=== PATIENT | male | born 1990 | race Caucasian/White ===

== ENCOUNTER 2020-10-04 12:40 | Emergency (ER) | payer BC, SELFPAY ==
--- NOTE | ~2020-10-04 | XR_ITS ---
EXAMINATION: XR foot LT min 3V DATE: 10/04/2020 13:11 INDICATION: Hyperextension injury. Lateral tarsal pain. TECHNIQUE: 4 views of left foot were obtained. COMPARISON: None. FINDINGS: Bone alignment is normal. No fracture. Joint spaces are well maintained. IMPRESSION: 1. No fracture. Reviewed, dictated and finalized at location B. LIFT DRIVER IMPRESSION: 1. No fracture.
--- NOTE | ~2020-10-04 | XR_ITS ---
EXAMINATION: XR ankle LT min 3V DATE: 10/04/2020 13:11 INDICATION: Left ankle hyperextension injury. Lateral tarsal pain. TECHNIQUE: 4 views of left ankle were obtained. COMPARISON: None. FINDINGS: Bone alignment is normal. No fracture. Joint spaces are well maintained. There is ankle sof t tissue swelling. IMPRESSION: 1. No fracture. Reviewed, dictated and finalized at location B. IOVASCULAR OR NURSE IMPRESSION: 1. No fracture.
[2020-10-04 12:52] VITALS: BP 127/77; PULSE 75; RESP 20; TEMP 37.9; O2SAT 100
--- NOTE | 2020-10-04 12:55 | ED.LOWEXIN ---
HPI - Extremity Injury (Lower) General Chief Complaint: Extremity Injury, Lower Stated Complaint: Extremity Injury, Lower Time Seen by Provider: 10/04/20 12:56 Source: patient and RN notes reviewed History of Present Illness HPI Narrative: Patient is a 30-year-old male who presents the urgent care with complaints of left ankle and foot injury. Patient states that he stepped off of some min into the mud yesterday and twisted his left ankle. Patient states that the swelling has not subsided since yesterday morning at approximately 11 AM. Patient states that he is elevated used ice and taken ibuprofen. Patient denies of any old injury to the left foot or ankle. States that pain is increased with weightbearing or ambulation. Patient did have a boot on at the time of the incident. Denies any other acute complaints or injuries. No acute distress noted. Patient aware of the plan of care. Some parts of this dictation were generated by voice recognition software and may contain typographical and/or grammatical inaccuracies. Related Data Home Medications Medication Instructions Recorded Confirmed No Home Medications 10/04/20 10/04/20 Allergies Allergy/AdvReac Type Severity Reaction Status Date / Time No Known Allergies Allergy Verified 10/04/20 13:06 Review of Systems Review of Systems: Narrative: CONSTITUTIONAL: Denies fever, chills, or sweats. EYES: Denies visual changes, redness, or discharge. ENT: Denies rhinorrhea, congestion, sore throat, or otalgia. CARDIOVASCULAR: Denies chest pain, palpitations, or edema. RESPIRATORY: Denies cough or dyspnea. GASTROINTESTINAL: Denies abdominal pain, nausea, vomiting, or diarrhea. GENITOURINARY: Denies dysuria or hematuria. SKIN: Denies rash or itching. MUSCULOSKELETAL: Reports of left foot and ankle pain and swelling NEUROLOGIC: Denies headache, numbness, or weakness. All other systems reviewed are negative, except as documented in HPI. PMFSH Comments At the time of my signature, I reviewed and agree with the nursing past medical, surgical, social, and family history. There is no relevant family history pertinent to the patient complaint. Exam Narrative: Exam Narrative: GENERAL: This is a well-nourished, well-developed patient, in no apparent distress. HEAD: normocephalic, atraumatic. EYES: PERRL. Sclera clear/white. Vision is grossly intact. EARS: External ears normal NOSE: External nose normal with no obvious nasal discharge, nares without redness, no rhinorrhea. THROAT: Mucous membranes moist NECK: Neck supple SKIN: warm, intact with no suspicious lesions or rash, good texture and turgor. NEURO: awake, alert, and oriented to person, place and time. There were no obvious focal neurologic abnormalities. EXTREMITIES: Mild to moderate edema and erythema noted to the lateral aspect of the left malleolus and left foot. Mild tenderness to the left lateral malleolus and left foot. Positive strong left pedal pulse with capillary refill less than 2 seconds. Range of motion within normal limits with mild pain. Increased pain with weightbearing. Course Vital Signs Vital signs: Vital Signs Temperature 100.2 F H 10/04/20 12:52 Pulse Rate 75 10/04/20 12:52 Respiratory Rate 20 10/04/20 12:52 Blood Pressure 127/77 10/04/20 12:52 Pulse Oximetry 100 10/04/20 12:52 Temperature 100.2 F H 10/04/20 12:52 Pulse Rate 75 10/04/20 12:52 Respiratory Rate 20 10/04/20 12:52 Blood Pressure 127/77 10/04/20 12:52 Pulse Oximetry 100 10/04/20 12:52 Reviewed MDM - Extremity Injury (Lower) MDM Narrative Medical decision making narrative: Reviewed x-ray results with the patient. He is aware that x-ray is normal without any fracture or deformities. Advised the patient to continue elevation, ice ibuprofen and Tylenol as needed. Wear an Anuel wrap for support and comfort. Try to limit strenuous activity or weightbearing exercises for the next 3 to 5 days, to allow
== END 2020-10-04 13:26 | disposition home or self-care (01) ==
PROVIDERS: Emergency Provider Nurse Practitioner Family
DX: S93.402A Sprain of unspecified ligament of left ankle, initial encounter (principal); S96.912A Strain of unspecified muscle and tendon at ankle and foot level, left foot, initial encounter; X50.9XXA Other and unspecified overexertion or strenuous movements or postures, initial encounter
CPT/HCPCS: 73610; 73630; 99213; G0463

== ENCOUNTER 2025-06-25 11:58 | Emergency (ER) | payer BC, SELFPAY ==
--- NOTE | ~2025-06-25 | XR_ITS ---
EXAMINATION: XR hand RT min 3V, 06/25/2025 12:12 CDT HISTORY: PUNCHING INJURY, DORSAL PAIN 4 5 METACARPALS COMPARISON: No comparisons available. Findings: There is a remote fracture of the fifth metacarpal head. There is a displaced fracture of the proximal pole metacarpal with intra-articular extension. No significant degenerative changes. Soft tissues unremarkable. Impression: Fourth metacarpal fracture Reviewed, dictated and finalized at location A. Impression: Fourth metacarpal fracture
--- OUTSIDE RECORDS SUMMARY | 2025-06-25 12:01 | XMS_ITS | Clinical Summary ---
Author Organization [facility] Address [address] [place] [address] Care Team Providers Care Weights And Measures Sealer Name Role Phone Sergio Hastings DC Unavailable [phone] Allergies No known active allergies Medications methylPREDNISol one (MEDROL DOSEPACK) 4 mg DosepackIndicat ions:Acute right-sided low back pain with right-sided sciatica Take as directed on package. 21 tablet 08/13/2021 Active Active Problems Problem Noted Date Diagnosed Date Acute right-sided low back pain with right-sided sciatica 08/15/2021 Assessment & Plan (08/15/2021 8:41 AM CDT): X-rays of lumbar spine ordered. Prescription medications sent. Consider physical therapy. May use ice packs or heating pads 20 minutes/hour p.r.n. pain. Migraine without aura and wi thout status migrainosus, not intractable 08/15/2021 Assessment & Plan (08/15/2021 8:40 AM CDT): Ibuprofen at onset of headaches. Prescription given. Take with food. Notify our office if no improvement. Immunizations Immunization Administration Dates Next Due Influenza, Unspecified 08/13/2021(Deferred: Bouchra ent Refused) Social History Tobacco Use Types Packs/Day Years Used Date Smoking Tobacco: Never Smokeless Tobacco: Never Alcohol Use Standard Drinks/Week Comments Not Currently 0 (1 standard drink = 0.6 oz pur e alcohol) PHQ-2 Answer Date Recorded PHQ-2 Total Score (If total score is 3 or more points, staff should administer the PHQ-9) 0 08/13/2021 Personal Safety Answer Date Recorded Getting School Help Needed Not on file 12/16 Sex and Gender Information Value Date Recorded Sex Assigned at Not on file 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 Gender Identity Not on file Sexual Orientation Not on file Obstetrics History Last Filed Vital Signs Vital Sign Reading Time Taken Comments Blood Pressure 113/70 08/13/2021 1:17 PM CDT Pulse 56 08/13/2021 1:17 PM CDT Temperature 36.6 C (97.8 F) 08/13/2021 1:17 PM CDT Respiratory Rate 16 08/13/2021 1:17 PM CDT Oxygen Saturation 99% 08/13/2021 1:17 PM CDT Inhaled Oxygen Concentration - - Weight 70.3 kg (154 lb 14.4 oz) 08/13/2021 1:17 PM CDT Height 182.9 cm (6' 0.01) 08/13/2021 1:17 PM CD T Body Mass Index 21 08/13/2021 1:17 PM CDT Plan of Treatment Not on file Insurance [employer] Member Subscriber Plan / Payer (Ef fective 2020-Present) Name:Edenilson Elkins Relation to Subscriber:Self Name:Edenilson Elkins Payer ID:[id number] (NAIC) Type:[facility] Address: [facility] [id number] [id number] Care Teams Weights And Measures Sealer Relationship Specialty Start Date End Date Sergio Hastings DC [address] [place] [address] Referring Physician 08/13/21
[2025-06-25 12:11] VITALS: BP 135/98; PULSE 81; RESP 18; TEMP 37.3; O2SAT 100
--- NOTE | 2025-06-25 12:12 | ED.UPPEXIN ---
HPI - Extremity Injury (Upper) General Chief Complaint: Extremity Injury, Upper Stated Complaint: right hand swelling Time Seen by Provider: 06/25/25 12:13 Source: patient Mode of arrival: ambulatory Limitations: no limitations History of Present Illness HPI narrative: 35-year-old male presented for complaint of pain and swelling to the right hand for about 5 days. States injury occurred when he was hitting a punching bag. Says he does this for exercise, but had removed his padding and continued to punch. Has been wearing a velcro boxer's splint from a friend. Denies numbness, tingling, weakness, or deformity. Related Data Allergies Allergy/AdvReac Type Severity Reaction Status Date / Time No Known Allergies Allergy Verified 06/25/25 12:11 Review of Systems Review of Systems: CONSTITUTIONAL: Denies body aches, fever, chills EYES: Denies visual changes ENT: Denies rhinorrhea, congestion CARDIOVASCULAR: Denies chest pain, palpitations, or edema. RESPIRATORY: Denies cough or dyspnea. SKIN: Denies rash, itching, or wounds. MUSCULOSKELETAL: reports Right hand pain and swelling NEUROLOGIC: Denies headache, numbness, tingling, or weakness. All systems reviewed & are unremarkable except as noted in HPI and below PMFSH Comments At time of signature, I have reviewed and agree with nursing past medical, surgical, social and family history unless otherwise noted. Please see nursing chart for further information. There is no relevant family history pertinent to the presenting complaint Exam Narrative: GENERAL: Well-appearing CHEST: Speaks in full sentences. No respiratory distress. HEART: Regular rate and rhythm. Normal and equal peripheral pulses. EXTREMITIES: Right hand proximal 4th digit tender with palpation, localized swelling noted. Bruising to palmar surface and web space between 4th and 5th MCPs. Hand has normal strength and sensation, normal range of motion of digits and wrist, endorses pain to proximal 4th digit with wrist flexion. Normal finger cascade. No open wounds, pulse palpable and equal bilaterally, skin warm, dry, pink. Capillary refill less than 3 seconds. SKIN: Warm, dry NEURO: Alert and oriented x3. PSYCH: Normal mood and affect Course Course Emergency Course: Patient is aware of diagnosis, understands and agrees to treatment plan. Anticipatory guidance given. Patient agrees to follow-up as directed and is aware of reasons to seek care at the emergency department. Portions of this record may have been created with voice recognition software Level of Care: Express Care Visit Vital Signs Vital signs: Vital Signs Temperature 99.2 F 06/25/25 12:11 Pulse Rate 81 06/25/25 12:11 Respiratory Rate 18 06/25/25 12:11 Blood Pressure 135/98 H 06/25/25 12:11 Pulse Oximetry 100 06/25/25 12:11 Oxygen Delivery Room Air 06/25/25 12:11 Temperature 99.2 F 06/25/25 12:11 Pulse Rate 81 06/25/25 12:11 Respiratory Rate 18 06/25/25 12:11 Blood Pressure 135/98 H 06/25/25 12:11 Pulse Oximetry 100 06/25/25 12:11 Oxygen Delivery Room Air 06/25/25 12:11 Reviewed MDM - Extremity Injury (Upper) MDM Narrative Medical decision making narrative: Discussed physical exam findings and xray. Ulnar gutter OCL applied. Declined sling. Advised supportive measures and signs/symptoms to go to the ER. Pt is appropriate for outpt treatment and f/u. Differential Diagnosis Differential diagnosis: Likely fracture of hand Imaging Data Radiologist's impression: Patient: Edenilson Elkins : 1990 MR#: [id number] Age: 35 Acct:[id number] Loc: [facility] ADM Date: 06/25/25Attending Dr: EXAMINATION: XR hand RT min 3V, 06/25/2025 12:12 CDT HISTORY: PUNCHING INJURY, DORSAL PAIN 4 5 METACARPALS COMPARISON: No comparisons available. Findings: There is a remote fracture of the fifth metacarpal head. There is a displaced fracture of the proximal pole metacarpal with intra-articular extension. No significant degenerative changes. Soft tissues unremarkable. Impression: Fourth metacarpal fracture Discharge Plan Discharge Clinical Impression: Hand fracture, right Qualifiers: Encounter type: initial encounter Fracture type: closed Qualified Code(s): S62.91XA - Unspecified fracture of right wrist and hand, initial encounter for closed fracture Patient Disposition: Home Condition: Stable Instructions: Hand Fracture (ED) Additional Instructions: Rest, no lifting, pushing, pulling etc while splint is in place. You will need to follow up with the warehouse distribution specialist for restrictions and return to normal activity guidelines. ice and elevate the affected extremity. Motrin 800mg every 8 hours, as needed, for pain (take with food). Tylenol 1000mg every 8 hours. Keep splint clean, dry and in place. Use garbage bag while showering to keep splint dry. Go to the ER immediately for increased pain, tingling/numbness, swelling, redness, etc Follow up with Orthopedic Surgery in 3 days for further evaluation - please call for an appointment. Patient Language: Tamazight Prescriptions: New ibuprofen 800 mg tablet 800 mg PO TID PRN (Reason: pain) Qty: 15 0RF Follow-up/Referrals: PHYSICIAN,LIGHTING ENGINEER [Primary Care Provider, Internal Medicine] Sherwin Recio MD [Physician, Orthopedics] Referral Note: Fourth metacarpal fracture Time of Disposition: 12:48
== END 2025-06-25 13:07 | disposition home or self-care (01) ==
PROVIDERS: Emergency Provider Nurse Practitioner Family
DX: S62.306A Unspecified fracture of fifth metacarpal bone, right hand, initial encounter for closed fracture (principal); W22.8XXA Striking against or struck by other objects, initial encounter
CPT/HCPCS: 29125; 73130; 99214; A4565; G0463